=== PATIENT | male | born 1975 | race Two or more races ===

== ENCOUNTER 2020-07-02 00:07 | Emergency (ER) | payer OTHER ==
[2020-07-02] MEDS ORDERED: ONDANSETRON 2MG/ML, 2ML IVPush ONE (00:30)
--- NOTE | 2020-07-02 00:37 | NUR ---
PT BIB [facility] ON LEGAL HOLD. PT WAS HEAVILY DRINKING THIS PM AND TOLD FAMILY HE WANTED TO SHOOT HIMSELF. PT DENIES HI. PHONE, PANTS AND NECKLACE TAKEN FROM PT AND PLACED IN LOCKER.
[2020-07-02] MEDS ORDERED: ONDANSETRON 2MG/ML, 2ML ONE (00:42)
[2020-07-02 00:45] LABS: BASOPHILS # (AUTO) 0.04 x10^3/uL (0-0.1); BASOPHILS % (AUTO) 1 % (0-1); EOSINOPHILS # (AUTO) 0.08 x10^3/uL (0-0.4); EOSINOPHILS % (AUTO) 1 % (1-7); LYMPHOCYTES # (AUTO) 3.13 x10^3/uL (1-3.4); LYMPHOCYTES % (AUTO) 41 % (22-44); MD NO; MEAN CORPUSCULAR HEMOGLOBIN 28.5 pg (27.5-34.5); MEAN CORPUSCULAR HGB CONC 32.1 g/dL (33.2-36.2); MEAN CORPUSCULAR VOLUME 88.7 fL (81-97); MEAN PLATELET VOLUME 7.4 fL (7.4-10.4); MONOCYTES # (AUTO) 0.67 x10^3/uL (0.2-0.8); MONOCYTES % (AUTO) 9 % (2-9); NEUTROPHILS # (AUTO) 3.73 x10^3/uL (1.8-6.8); NEUTROPHILS % (AUTO) 49 % (42-75); PLATELET COUNT 298 x10^3/uL (130-400); RED BLOOD COUNT 5.14 x10^6/uL (4.38-5.82); RED CELL DISTRIBUTION WIDTH 15.2 % (9.4-14.8)
[2020-07-02 00:56] LABS: ALBUMIN 3.7 g/dL (3.4-5.0); ANION GAP 8 mmol/L (5-15); CALCIUM 7.7 mg/dL (8.5-10.1); CHLORIDE 111 mmol/L (98-107); CREATININE 0.99 mg/dL (0.7-1.3)
[2020-07-02 01:05] LABS: SALICYLATE LEVEL < 1.7 mg/dL (2.8-20.0)
[2020-07-02 01:19] LABS: AMPHETAMINE SCREEN, URINE Negative (Negative); BARBITURATE SCREEN, URINE Negative (Negative); BENZODIAZEPINE SCREEN, URINE Negative (Negative); CANNABINOID SCREEN, URINE Negative (Negative); COCAINE SCREEN, URINE Negative (Negative); METHADONE SCREEN, URINE Negative (Negative); OPIATE SCREEN, URINE Negative (Negative)
--- NOTE | 2020-07-02 01:52 | NUR ---
PT TRANSFERRED INTO ROOM 3. PT RESTING AT THIS TIME. SITTER IN DIRECT LINE OF SIGHT. RESP EVEN AND UNLABORED. WILL CONTINUE TO MONITOR.
--- NOTE | 2020-07-02 04:59 | NUR ---
PT MORE ALERT AT THIS TIME, WATER PROVIDED. RESP EVEN AND UNLABORED. SITTER IN DIRECT LINE OF SIGHT.
--- NOTE | 2020-07-02 06:00 | NUR ---
PT RESTING ON GURNEY, MONITORS IN PLACE. PT RESP EVEN AND UNLABORED. TRAY ORDERED FOR PT. SITTER IN DIRECT LINE OF SIGHT. PT LEGALLY SOBER, TELEPSYCH CONTACTED FOR CONSULT. PROCESS EXPLAINED TO PT, VERBALIZED UNDERSTANDING. WILL CONTINUE TO MONITOR.
--- NOTE | 2020-07-02 06:02 | NUR ---
SOC CALLED AND NEW CONSULT IS REQUESTED. BOT [id number] IS PLACED IN PATIENTS ROOM.
--- NOTE | 2020-07-02 07:06 | NUR ---
Receieved bedside report from AMALIA Mathur. All questions answered. Pt resting on gurney alert and oriented x 4. Pt denies SI/HI at this time. Pt states pmh of SI more than three months ago. Psych IDENTIFIER HORSE to see patient. Room secured for SI/HI, sitter in direct line of sight for observation. NADN. Provided warm blanket per patient request. No other needs requested at this time.
--- NOTE | 2020-07-02 07:23 | NUR ---
Cancelled telepsych as psych SAFE DEPOSIT CLERK to see patient later
[2020-07-02 07:54] VITALS: BP 159/93
--- NOTE | 2020-07-02 08:00 | NUR ---
PATIENT RECEIVED BREAKFAST TRAYS. PT APPRECIATIVE. NAND AT THIS TIME. PT ALERT AND ORIENTED X 4 SITTING ON GURNEY IN ROOM SECURED FOR SI/HI. SITTER IN DIRECT LINE OF SIGHT FOR OBSERVATION. NO OTHER NEEDS EXPRESSED AT THIS TIME.
--- NOTE | 2020-07-02 08:43 | NUR ---
Pt resting on gurney. NADN. No needs expressed. Pt has unlabored respirations with even chest rise and fall. Room remains secured for SI/HI. Sitter in direct line of sight for observaiton.
--- NOTE | 2020-07-02 10:26 | NUR ---
PT SITTING ON LUCILLE REQUESTING HIS CELL PHONE. PT'S BELONGINGS REMAIN LOCKED IN ED LOCKER. PT STATES HE CAN HEAR HIS CELL PHONE RINGING. PT REORIENTED BY ED SOUND DESIGNER. NO OTHER NEEDS REQUESTED. ROOM REMAINS SECURED FOR SI/HI AND SITTER IN DIRECT LINE OF SIGHT FOR OBSERVATION.
[2020-07-02] MEDS ORDERED: PLEASE ENTER HEIGHT AND WEIGHT MC SCH (11:30)
[2020-07-02] MEDS ORDERED: POTASSIUM CHLORIDE 20 MEQ TAB.ER.PRT PO ONE (11:30)
--- NOTE | 2020-07-02 11:58 | NUR ---
break rn- meal provided, safety precautions in place
[2020-07-02] MEDS ORDERED: POTASSIUM CHLORIDE 20 MEQ TAB.ER.PRT ONE (12:26)
--- NOTE | 2020-07-02 12:30 | NUR ---
Patient given discharge instructions and they have confirmed that they understand the instructions. Patient ambulatory with steady gait. Pt left with all personal belongings and d/c paperwork. NADN. No other needs expressed.
== END 2020-07-02 01:52 ==
LOC: ED 00:27
DX: R45.851 Suicidal ideations (principal); F10.121 Alcohol abuse with intoxication delirium; Y90.9 Presence of alcohol in blood, level not specified; I10 Essential (primary) hypertension
CPT/HCPCS: 36415; 80048; 80307; 82040; 85025; 96372; 99284; J2405

== ENCOUNTER 2021-08-21 10:42 | Emergency (ER) | payer OTHER ==
[~2021-08-21] VITALS: Ht 175.3 cm; Wt 100.8 kg
== END 2021-08-21 14:14 | disposition home or self-care (01) ==
LOC: ED 11:12
DX: K04.7 Periapical abscess without sinus (principal); I10 Essential (primary) hypertension